=== PATIENT | female | born 1985 ===

== ENCOUNTER 2019-05-18 05:12 | Day surgery (SDC) | payer OTHER ==
[2019-05-18] VITALS (10 sets, daily range): BP systolic 122–155; BP diastolic 62–95
[~2019-05-18] VITALS: Ht 172.7 cm; Wt 181.0 kg
[~2019-05-18 05:12] MED LIST: BENAZEPRIL HCL20 MG ORAL; HYDROCHLOROTH12.5 MG ORAL; [UNRECOGNIZED DRUG - OTHER] PO
[2019-05-18] MEDS ORDERED: LR 1000ml 1,000 ML IVLG SCH (06:33)
[2019-05-18] MEDS ORDERED: Bupivacaine 0.5% Inj 30 ml vial INJ ONE (06:38)
[2019-05-18] MEDS ORDERED: Dexamethasone 4mg/ml vial ONE (06:43)
[2019-05-18] MEDS ORDERED: Sodium Chloride 10ml vial INJ ONE (06:43)
[2019-05-18] MEDS ORDERED: Lidocaine 1% MPF 10mg/ml 5ml ONE (06:43)
[2019-05-18] MEDS ORDERED: fentaNYL 100 mcg/2 mL IV ONE (06:43)
[2019-05-18] MEDS ORDERED: Acetaminophen (Non formulary) 100 ML IV ONE (06:45)
[2019-05-18] MEDS ORDERED: DiphenhydrAMINE 50mg/ml Inj IVP PRN (06:45)
[2019-05-18] MEDS ORDERED: Ketorolac 30mg Inj IV PRN ×2 (06:45)
[2019-05-18] MEDS ORDERED: Midazolam 2mg/2ml Inj IVP PRN (06:45)
[2019-05-18] MEDS ORDERED: HYDROcodone/Acetamin 7.5/325 tab ORAL PRN (06:45)
[2019-05-18] MEDS ORDERED: fentaNYL 100 mcg/2 mL IV PRN (06:45)
[2019-05-18] MEDS ORDERED: LORazepam Inj 2mg/ml 1ml IV PRN (06:45)
[2019-05-18] MEDS ORDERED: Meperidine 50mg/ml Inj(FOR RIGORS ONLY) IVP PRN (06:45)
[2019-05-18] MEDS ORDERED: Labetalol 5mg/ml 20ml vial IV PRN (06:45)
[2019-05-18] MEDS ORDERED: oxyCODONE HCL/Acetaminophen 5/325mg ORAL PRN (06:45)
[2019-05-18] MEDS ORDERED: Metoclopramide 10mg/2ml Inj IVP PRN (06:45)
[2019-05-18] MEDS ORDERED: HYDROcodone/Acetamin 5/325 tab ORAL PRN (06:45)
[2019-05-18] MEDS ORDERED: Atropine Sulfate 0.4mg/ml inj IVP PRN (06:45)
[2019-05-18] MEDS ORDERED: Propofol 200mg/20ml IV ONE (06:45)
[2019-05-18] MEDS ORDERED: Hydromorphone 0.5mg/0.5ml inj IVP PRN (06:45)
[2019-05-18] MEDS ORDERED: Rocuronium Bromide 50mg/5ml Inj IV ONE (06:50)
--- NOTE | 2019-05-18 07:05 | Anethesia Preoperative Eval ---
Anesthesia Pre-op PMH/ROS General Date of Evaluation: May 18, 2019 Time of Evaluation: 07:24 Anesthesiologist: José Luis ASA Score: ASA 3 Mallampati Score Class I : Soft palate, uvula, fauces, pillars visible Class II: Soft palate, uvula, fauces visible Class III: Soft palate, base of uvula visible Class IV: Only hard plate visible Mallampati Classification: Class III Surgeon: Inge Diagnosis: L Hand Pain Surgical Procedure: L CTR and Cubital Tunnel Release Anesthesia History: none Family History: no anesthesia problems Allergies: Coded Allergies: No Known Allergies (Unverified , 05/17/19) Medications: see eMAR Patient NPO?: Yes Past Medical History Cardiovascular: Reports: HTN Other: obesity - MORBID BMI 65 Anesthesia Pre-op Phys. Exam Physician Exam Last Vital Signs Date Time Temp Pulse Resp B/P (MAP) Pulse Ox O2 Delivery O2 Flow Rate FiO2 05/18/19 05:46 Room Air 05/18/19 05:43 98.1 79 18 147/95 99 Constitutional: NAD Neurologic: CN 2-12 intact Cardiovascular: RRR Respiratory: CTA Gastrointestinal: S/NT/ND Airway Exam Mallampati Score: Class III MO: limited ROM: limited Teeth: missing, intact Anesthesia Pre-op A/P Labs Urine Test Test 05/18/19 05:20 Urine HCG, Qualitative Negative (NEGATIVE) Risk Assessment & Plan Assessment: ASA 3 Plan: GA, SED, GlideScope Go Status Change Before Surgery: No Pre-Antibiotics Dru Grams Ancef IV Given Within 1 Hr of Incision: Yes Time Given: 07:46 Obinna Wren MD May 18, 2019 07:04
--- NOTE | 2019-05-18 07:06 | Immediate Post-Op Evaluation ---
Immediate Post-Op Evalulation Immediate Post-Op Evalulation Procedure: L CTR and Cubital Tunnel Release Date of Evaluation: May 18, 2019 Time of Evaluation: 09:30 IV Fluids: 800 LR Blood Products: 0 Estimated Blood Loss: 20 Urinary Output: 0 Blood Pressure Systolic: 149 Blood Pressure Diastolic: 84 Pulse Rate: 78 Respiratory Rate: 16 O2 Sat by Pulse Oximetry: 99 Temperature (Fahrenheit): 97.1 Pain Score (1-10): 2 Nausea: No Vomiting: No Complications 0 Patient Status: awake, reacts, patent, extubated, none Hydration Status: adequate Dru Grams Ancef IV Given Within 1 Hr of Incision: Yes Time Given: 07:46 Obinna Wren MD May 18, 2019 07:06
--- NOTE | 2019-05-18 07:09 | 48 Hour Post Anesthesia Eval ---
Post Anesthesia Evaluation Procedure: L CTR and Cubital Tunnel Release Date of Evaluation: May 18, 2019 Time of Evaluation: 11:43 Blood Pressure Systolic: 167 0: 98 Pulse Rate: 78 Respiratory Rate: 18 Temperature (Fahrenheit): 98.2 O2 Sat by Pulse Oximetry: 99 Airway: patent Nausea: No Vomiting: No Pain Intensity: 2 Hydration Status: adequate Cardiopulmonary Status: Stable Mental Status/LOC: patient returned to baseline Follow-up Care/Observations: 0 Post-Anesthesia Complications: 0 Follow-up care needed: ready to discharge Obinna Wren MD May 18, 2019 07:09
[2019-05-18] MEDS ORDERED: LR 1000ml ONE (07:30)
[2019-05-18] MEDS ORDERED: Sterile Water Irrig 1000ml IRRIG ONE (07:30)
--- NOTE | 2019-05-18 07:40 | Pre-Procedure Note/Attestation ---
Pre-Procedure Note/Attestation Complete Prior to Procedure Planned Procedure: left Procedure Narrative: cubital and carpal tunnel releases Indications for Procedure Pre-Operative Diagnosis: post traumatic cubital and carpal tunnel syndromes Attestation I attest that I discussed the nature of the procedure; its benefits; risks and complications; and alternatives (and the risks and benefits of such alternatives ), prior to the procedure, with the patient (or the patient's legal medical field representative). I attest that, if there was a reasonable possibility of needing a blood transfusion, the patient (or the patient's legal medical field representative) was given the [facility] standardized written summary, pursuant to the [place] Blood Safety Act ([place] Health and Safety Code # 1645, as amended). I attest that I re-evaluated the patient just prior to the surgery and that there has been no change in the patient's H&P, except as documented below: Benny Youngblood MD May 18, 2019 07:40
[2019-05-18] MEDS ORDERED: Neostigmine 1mg/ml 10ml Inj ONE (08:13)
[2019-05-18] MEDS ORDERED: Glycopyrrolate 0.2mg/ml 1ml Vial ONE (08:13)
[2019-05-18] MEDS ORDERED: NS Irrig 1000ml IRRIG ONE (08:23)
--- NOTE | 2019-05-18 09:14 | Brief Operative Note ---
Immediate Post Operative Note Operative Note Pre-op Diagnosis: post traumatic cubital and carpal tunnel syndromes Post-op Diagnosis: same as pre-op Surgeon: Ford Specimen: none Complications: none Condition: stable Fluids: 300 Estimated Blood Loss: minimal Drains: none Implant(s) used?: No - ulnar nerve tight at elbow, median nerve tight at wrist Benny Youngblood MD May 18, 2019 09:14
--- NOTE | 2019-05-20 15:30 | Operative Note - Dictated ---
DATE OF OPERATION: 05/18/2019 PREOPERATIVE DIAGNOSES: Left upper extremity cubital tunnel syndrome and carpal tunnel syndrome, posttraumatic. POSTOPERATIVE DIAGNOSES: Left upper extremity cubital tunnel syndrome and carpal tunnel syndrome, posttraumatic. FINDINGS: Compressed ulnar nerve at the elbow and compressed median nerve at the wrist. SURGEON: Benny Youngblood M.D. FACILITIES MAINTENANCE SUPERVISOR: None. ESTIMATED BLOOD LOSS: 20 mL. TOURNIQUET TIME: 0. ANESTHESIA: General endotracheal tube. INDICATIONS FOR SURGERY: The patient is status post trauma to the left upper extremity with persistent numbness and tingling caused by the injury. Electrodiagnostic studies confirm cubital tunnel syndrome and carpal tunnel syndrome. DESCRIPTION OF PROCEDURE IN DETAIL: The patient was brought into the operating room and identified as the patient. A time out was performed. A general anesthetic was induced. The patient was placed supine on the operating room table. The left arm was prepped and draped up through the shoulder. A serial tourniquet was available, but was not applied during the procedure. Attention was first directed at the wrist. A 1 inch incision was made beginning at the distal flexor crease. Hemostasis was obtained as bleeding was encountered. Carefully and methodically, the incision was deepened until the transverse carpal ligament was identified. Protecting the nerve beneath with a hemostat, the transverse carpal ligament was gently and carefully divided same on the ulnar side of the nerve. The dissection was carried out proximally and distally. A freer was used to be certain the median nerve was no longer compressed. It had an configuration right at the distal palmar crease. Upon first visualizing in the median nerve, the volar vein was not identified or blood vessel was not visualized, but within a couple of minutes, it became visible indicating that the compression had been released. The wound was thoroughly irrigated with normal saline. The skin was closed using 4-0 Vicryl simple interrupted. A dressing was placed across the wrist. Next attention was directed at the elbow. Although it was somewhat difficult, the medial epicondyle was palpated and the olecranon was palpated. The course of the nerve was trace. An approximately 5 inch incision was made centered over the elbow. There was extensive fat in the area. Hemostasis was obtained as bleeding was encountered. Deep retractors were used. Slowly and methodically, the soft tissue was carried out until the ulnar nerve could be identified. There appeared to be compression right at the medial epicondyle. Consideration was given to a medial epicondylectomy, but it was elected not to do so, but simply to release the nerve. This was performed. The release was carried out proximally and distally. A freer was used to confirm that the nerve was completely decompressed. The wound was thoroughly irrigated with normal saline. The skin was anesthetized using Marcaine. The subcutaneous tissue was closed using 2-0 Vicryl. The skin was closed using 4-0 nylon interrupted horizontal mattress sutures. A sterile dressing was applied to the elbow and a sterile dressing was applied to the wrist. The arm was placed into a long arm well-padded splint. She was placed into a sling. She was awakened in the operating room in satisfactory condition. COMPLICATIONS: None. Benny Youngblood M.D. DR: BRANDAN JOB#: [id number] CC: Benny Youngblood M.D.; [address] [place] [id number].; Fax#: [phone]
== END 2019-05-18 11:30 | disposition home or self-care (01) ==
LOC: SUR 05:12
DX: G56.22 Lesion of ulnar nerve, left upper limb (principal); G56.02 Carpal tunnel syndrome, left upper limb; I10 Essential (primary) hypertension; E66.1 Drug-induced obesity; Z68.44 Body mass index [BMI] 60.0-69.9, adult; Z97.5 Presence of (intrauterine) contraceptive device; R73.03 Prediabetes
CPT/HCPCS: 64718; 64721; 81025; J0690; J1100; J1885; J2250; J2405; J2704; J2710; J3010; J3490; 94003; 94150